=== PATIENT | female | born 1995 | race Caucasian/White ===

== ENCOUNTER 2017-09-08 | Emergency (ER) | payer OTHER ==
[2017-09-08 00:08] VITALS: BP 132/82
[2017-09-08] MEDS ORDERED: FAMOTIDINE 20 MG TABLET PO STA (00:09)
[2017-09-08] MEDS ORDERED: MAG HYDROX/AL HYDROX/SIMETH 30 ML UDC PO STA (00:09)
[2017-09-08] MEDS ORDERED: LIDOCAINE VISCOUS 2% 15 ML UDC MM STA (00:09)
--- NOTE | 2017-09-08 00:38 | ED Physician Documentation ---
History of Present Illness - Stated complaint Stated Complaint: THROAT PX - Chief complaint Chief Complaint: Heent - History obtained from History obtained from: Patient, Family - History of Present Illness Timing: Yesterday - Additonal information Additional information: Patient is a 22 year old female with no significant past medical history who is presenting to the emergency department for throat pain, and the sensation of a lump in her throat. patient states that it has been going on for the last few days. patient states that tonight at a baseball game she had some post tussive emesis so she finally came to get checked out. Review of Systems Ten Systems: 10 systems reviewed and negative PD PAST MEDICAL HISTORY - Past Medical History Past Medical History: No - Past Surgical History Past Surgical History: No - Present Medications Home Medications: Ambulatory Orders Medication Instructions Recorded Confirmed Lidocaine HCl [Lidocaine HCl 15 ml MM DAILY PRN #100 ml 09/08/17 Viscous] - Allergies Allergies/Adverse Reactions: Allergies Allergy/AdvReac Type Severity Reaction Status Date / Time No Known Drug Allergies Allergy Verified 09/08/17 00:08 - Social History Does the pt smoke?: No Smoking Status: Never smoker Does the pt drink ETOH?: Yes Does the pt have substance abuse?: No - Immunizations Immunizations are current?: Yes - POLST Patient has POLST: No PD ED PE NORMAL - General General: Alert and oriented X 3, No acute distress, Well developed/nourished - HEENT HEENT: Atraumatic, PERRL, Moist mucous membranes, Pharynx benign, Dentition benign - Neck Neck: Supple, no meningeal sign - Cardiac Cardiac: RRR, No murmur - Respiratory Respiratory: No respiratory distress, Clear bilaterally - Abdomen Abdomen: Soft, Non tender, Non distended - Derm Derm: Normal color, Warm and dry, No rash - Extremities Extremities: No deformity, Normal ROM s pain - Neuro Neuro: Alert and oriented X 3, No motor deficit, Normal speech Eye Opening: Spontaneous Motor: Obeys Commands Verbal: Oriented GCS Score: 15 - Psych Psych: Normal mood Results - Vitals Vitals: Vital Signs - 24 hr 09/08/17 00:04 Temperature 36.5 C Heart Rate 96 Respiratory 16 Rate Blood Pressure 132/82 H O2 Saturation 99 Oxygen O2 Source Room air - Labs Labs: Laboratory Tests 09/08/17 00:15 Group A Strep Rapid Negative PD MEDICAL DECISION MAKING - ED course Complexity details: reviewed old records, reviewed results, re-evaluated patient , considered differential, d/w patient ED course: Patient was seen and examined at bedside. Patient was well appearing and in no acute distress. rapid strep was performed and was negative. patient was treated with maalox and viscous lidocaine. patient was tolerating PO without any difficulty. Patient required no further inpatient work up and was stable for discharge with outpatient follow up. - Sepsis Event Vital Signs: Vital Signs - 24 hr 09/08/ 00:04 Temperature 36.5 C Heart Rate 96 Respiratory 16 Rate Blood Pressure 132/82 H O2 Saturation 99 Oxygen O2 Source Room air Departure - Departure Disposition: Home, Self Care Clinical Impression: Acid reflux Condition: Good Instructions: GERD Dc Follow-Up: primary,care provider [Other] - Within 3 Days Prescriptions: Lidocaine HCl [Lidocaine HCl Viscous] 15 ml MM DAILY PRN #100 ml PRN Reason: Heartburn Comments: Your symptoms today are likely secondary to acid reflux. You should decrease the amount of fried, fatty, acidic or spicy foods. You should eat smaller meals and don't lie down flat after eating. You can try tums or maalox if the symptoms persist as well as viscous lidocaine. You should follow up with your doctor if your symptoms persist. You may return to the emergency department at any time for new, worsening or uncontrollable symptoms.
== END 2017-09-08 00:45 | disposition home or self-care (01) ==
LOC: ED
DX: K21.9 Gastro-esophageal reflux disease without esophagitis (principal)
CPT/HCPCS: 87070; 87430; 99283; A9270